=== PATIENT | male | born 1955 | race Caucasian/White ===

== ENCOUNTER → 2016-10-26 | Outpatient (CLI) | payer OTHER | LOC: FIMAGING 13:52 | PROVIDERS: ATTEND Family Medicine | DX: Z03.89 Encounter for observation for other suspected diseases and conditions ruled out (principal) ==

== ENCOUNTER → 2017-12-03 | Outpatient (CLI) | payer OTHER | LOC: FIMAGING 14:38 | PROVIDERS: ATTEND Physician Assistant | DX: M25.60 Stiffness of unspecified joint, not elsewhere classified (principal); M51.36 Other intervertebral disc degeneration, lumbar region ==

== ENCOUNTER → 2018-06-25 | Outpatient (CLI) | payer OTHER | LOC: FIMAGING 11:33 | PROVIDERS: ATTEND Neurological Surgery | DX: M54.16 Radiculopathy, lumbar region (principal); M48.062 Spinal stenosis, lumbar region with neurogenic claudication ==

== ENCOUNTER 2018-07-16 08:24 | Inpatient (IN) | payer OTHER ==
--- NOTE | 2018-07-16 06:43 | PDHPUP ---
History & Physical Update H&P update statement: This history and physical update is based on an assessment of the patient which was completed after admission or registration (within 24 hours), but prior to the surgery/procedure. H&P update: H&P reviewed & patient examined, no change in patient's condition since H&P completed
[~2018-07-16 08:24] MED LIST: oxyCODONE IR 5 MG TAB PO PRN
[2018-07-16] MEDS ORDERED: BUPIVACAINE/EPI 0.25% 30 ML SDV ONE (08:39)
[2018-07-16] MEDS ORDERED: THROMBIN (BOVINE) 5,000 UNIT VIAL TP ONE (08:39)
[2018-07-16] MEDS ORDERED: CHLORHEXIDINE GLUC HIBICLENS 118 ML BTL TP ONE (08:39)
[2018-07-16] MEDS ORDERED: BACITRACIN 50,000 UNITS/10 ML SYR IRR ONE ×2 (08:40→13:52)
[2018-07-16] MEDS ORDERED: ACETAMINOPHEN 500 MG TAB PO ONE (10:20)
[2018-07-16] MEDS ORDERED: ceFAZolin 2 GM/DEXTROSE 100 ML IV ONE (10:20)
[2018-07-16] MEDS ORDERED: GABAPENTIN 300 MG CAP PO ONE (10:20)
[2018-07-16] MEDS ORDERED: LR 1,000 ML IV ONE (10:21)
[2018-07-16] MEDS ORDERED: BACITRACIN OINTMENT 1 PACKET TP ONE (10:54)
--- NOTE | 2018-07-16 11:00 | PDANEPAE ---
ANE Past Medical History - Cardiovascular History Hx Hypertension: No Hx Arrhythmias: No Hx Chest Pain: No Hx Coronary Artery / Peripheral Vascular Disease: No Hx CHF / Valvular Disease: No Hx Palpitations: No Cardiovascular History Comment: DYSLIPIDEMIA - Pulmonary History Hx COPD: No Hx Asthma/Reactive Airway Disease: No Hx Recent Upper Respiratory Infection: No Hx Oxygen in Use at Home: No Hx Sleep Apnea: No Sleep Apnea Screening Result - Last Documented: Positive - Neurologic History Hx Cerebrovascular Accident: No Hx Seizures: No Hx Dementia: No - Endocrine History Hx Diabetes: No - Renal History Hx Renal Disorders: No - Liver History Hx Hepatic Disorders: No - Neurological & Psychiatric Hx Hx Neurological and Psychiatric Disorders: No - Cancer History Hx Cancer: Yes Cancer History Comment: SQUAMOUS CELL - Congenital Disorder History Hx Congenital Disorders: No - GI History Hx Gastrointestinal Disorders: No - Other Health History Other Health History: NEG - Chronic Pain History Chronic Pain: Yes (L LEG & L LOWER BACK) - Surgical History Prior Surgeries: LAMINOTOMY LUMBAR. KIDNEY STONE ANE Review of Systems Review of Systems: - Exercise capacity METS (RN): 4 METS ANE Patient History - Allergies Allergies/Adverse Reactions: azithromycin Allergy (Verified 07/10/18 08:58) Swelling/neck,face,throat - Home Medications Home Medications: Gabapentin [Neurontin 300 MG (*)] 900 mg PO BID 07/10/18 [Last Taken Unknown] Simvastatin [Zocor] 10 mg PO HS 07/10/18 [Last Taken Unknown] morphINE SR [Ms Contin/Oramorph 15 mg (*)] 15 mg PO TID 07/10/18 [Last Taken Unknown] oxyCODONE IR [Oxycodone Ir (*)] 5 mg PO BID PRN 07/10/18 [Last Taken Unknown] - Smoking Hx Smoking Status: Former smoker - Family Anes Hx Family Hx Anesthesia Complications: NEG ANE Labs/Vital Signs - Vital Signs Height: 185.42 cm Weight: 102.058 kg ANE Physical Exam - Airway Mallampati Score: Class 1 - ASA Status ASA Status: II ANE Anesthesia Plan Anesthesia Plan: general endotracheal anesthesia
[2018-07-16] MEDS ORDERED: MAGNESIUM HYDROXIDE 30 ML UDCUP PO PRN (11:04)
[2018-07-16] MEDS ORDERED: HYDROCODONE/APAP 5/325 TAB PO PRN (11:04)
[2018-07-16] MEDS ORDERED: ONDANSETRON 4 MG/2 ML VIAL IVP PRN ×2 (11:04→15:45)
[2018-07-16] MEDS ORDERED: ONDANSETRON DISINTEGRATING 4 MG TAB PO PRN (11:04)
[2018-07-16] MEDS ORDERED: HYDROmorphONE/DILAUDID 6 MG/30 ML PCA IV PRN (11:04)
[2018-07-16] MEDS ORDERED: diphenhydrAMINE 25 MG CAP PO PRN (11:04)
[2018-07-16] MEDS ORDERED: NALOXONE HCL 0.4 MG/ML INJ IVP PRN ×2 (11:04→15:45)
[2018-07-16] MEDS ORDERED: HYDROmorphONE/DILAUDID 1 MG/ML INJ IVP PRN (11:04)
[2018-07-16] MEDS ORDERED: LACTULOSE 20 GM/30 ML UDCUP PO PRN (11:04)
[2018-07-16] MEDS ORDERED: BISACODYL 10 MG SUPP PR PRN (11:04)
[2018-07-16] MEDS ORDERED: NS 1,000 ML IV SCH (11:15)
[2018-07-16] MEDS ORDERED: MIDAZOLAM 2 MG/2 ML VIAL ONE (11:24)
[2018-07-16] MEDS ORDERED: fentaNYL 100 MCG/2 ML INJ ONE ×3 (11:24→16:59)
[2018-07-16] MEDS ORDERED: PROPOFOL 200 MG/20 ML VIAL ONE (11:25)
[2018-07-16] MEDS ORDERED: PROPOFOL/EMULSION 500 MG/50 ML BOTTLE IV ONE ×2 (11:28→13:11)
[2018-07-16] MEDS ORDERED: ROCURONIUM 50 MG/5 ML VIAL ONE (11:54)
[2018-07-16] MEDS ORDERED: ONDANSETRON 4 MG/2 ML VIAL ONE (11:54)
[2018-07-16] MEDS ORDERED: METOCLOPRAMIDE 10 MG/2 ML VIAL ONE (11:54)
--- NOTE | 2018-07-16 11:59 | PDMN ---
Medical Necessity Medical necessity: Pt meets inpt criteria per MD order and [facility] S-820, Lumbar Fusion, IP only list. 62 y/o admitted for L4/5 and L5/S1 TLIF surg and post- op care.
--- NOTE | 2018-07-16 15:41 | POSTOPPROG ---
Post Op Note Date of Operation: 07/16/18 Surgeon: Sai Gore Exerciser Horse: RUTH Dyer Anesthesiologist: MD Lisa Anesthesia: GET(General Endotracheal), Local (Specify) Pre-op Diagnosis: Lumbar stenosis L4/5 and L5/S1 Post-op Diagnosis: Lumbar stenosis L4/5 and L5/S1 Indication: LLE pain, LBP Procedure: TLIF L4/5 and L5/S1 Findings: see Op report Inf/Abcess present in the surg proc area at time of surgery?: No Depth: Deep Incisional (Fascial) EBL: 100-500 Total fluids administered: see anesthesia record Complications: none Drains: Andrew Ogden
[2018-07-16] MEDS ORDERED: DEXAMETHASONE 4 MG/ML VIAL IVP PRN (15:45)
[2018-07-16] MEDS ORDERED: LR 500 ML IV PRN (15:45)
[2018-07-16] MEDS ORDERED: PHENYLEPHRINE HCL 100 MCG/ML SYR IVP PRN (15:45)
--- NOTE | 2018-07-16 15:46 | POSTANESTH ---
Post Anesthetic Evaluation Cardiovascular Status: Normal, Stable Respiratory Status: Normal, Stable Level of Consciousness/Mental Status: Can Participate in Eval Pain Control: Adequate, Prn Tx Ordered Nausea/Vomiting Control: Adequate, Prn Tx Ordered Complications Possibly Related to Anesthesia: None Noted
--- NOTE | 2018-07-16 15:49 | SOAPPROG ---
SOAP Progress Note Assessment/Plan: Post Op Visit: S: Awake and alert, NAD. Pt with expected lower back pain O: AFVSS/PERRLA/EOMI no droop CN 2-12 grossly intact +lt touch 5/5 BUE/BLE = CDI HILARY in place A/P: 62 yo male that is s/p TLIF L4/5 and L5/S1 -orders in place -call with any questions or concerns -pt seen by Dr Gore as well -xrays pending in am -PT/OT -brace when out of bed Objective: Vital Signs Temp Pulse Resp BP Pulse Ox 37 C 57 L 16 131/70 H 96 07/16/18 10:21 07/16/18 10:21 07/16/18 10:21 07/16/18 10:21 07/16/18 10:21 ICD10 Worksheet Patient Problems: Problems Problem Status Onset Arthrodesis status Acute Lumbar radicular pain Acute Lumbar stenosis Acute - ICD10 Problem Qualifiers (1) Lumbar stenosis (2) Lumbar radicular pain (3) Arthrodesis status
[2018-07-16] MEDS ORDERED: HYDROmorphONE/DILAUDID 2 MG/ML INJ ONE (16:18)
[2018-07-16] MEDS: fentaNYL 100 MCG/2 ML INJ IVP PRN ×3 (16:20→17:02)
[2018-07-16] MEDS: HYDROmorphONE/DILAUDID 2 MG/ML INJ IVP PRN ×4 (16:22→17:02)
[2018-07-16] MEDS: morphINE SR 15 MG TAB PO SCH ×3 (16:23→22:29)
[2018-07-16] MEDS ORDERED: oxyCODONE IR 5 MG TAB ONE (16:58)
[2018-07-16] MEDS: oxyCODONE IR 5 MG TAB PO PRN ×2 (16:59→20:26)
[2018-07-16] MEDS: ACETAMINOPHEN 500 MG TAB PO SCH ×2 (17:52→22:29)
[2018-07-16] MEDS: GABAPENTIN 300 MG CAP PO SCH ×2 (17:53→20:16)
[2018-07-16] MEDS: ceFAZolin 2 GM/DEXTROSE 100 ML IV SCH (20:15)
[2018-07-16] MEDS: FAMOTIDINE 20 MG TAB PO SCH (20:15)
[2018-07-16] MEDS: SENNOSIDES/DOCUSATE SODIUM TAB PO SCH (20:15)
[2018-07-16] MEDS: PRAVASTATIN SODIUM 20 MG TAB PO SCH (20:16)
[2018-07-17] MEDS: ceFAZolin 2 GM/DEXTROSE 100 ML IV SCH (05:20)
[2018-07-17] MEDS: ACETAMINOPHEN 500 MG TAB PO SCH ×3 (05:20→22:00)
[2018-07-17 05:21] LABS: PLATELET COUNT 190 10^3/uL (150-400)
--- NOTE | 2018-07-17 06:20 | GOP ---
DATE OF OPERATION: 07/16/2018 SURGEON: Whit Gore MD NEUROSURGEON: Whit Gore MD. BACK SEAM STITCHER: Marquis Dyer PA-C. PREOPERATIVE DIAGNOSIS: Left lumbosacral radiculopathy; prior lumbar laminectomy, L4-5; lumbar facet arthropathy, L4-5; severe foraminal stenosis, L4-5; moderate foraminal stenosis, L5-S1; failed back syndrome. POSTOPERATIVE DIAGNOSIS: Left lumbosacral radiculopathy; prior lumbar laminectomy, L4-5; lumbar face t arthropathy, L4-5; severe foraminal stenosis, L4-5; moderate foraminal stenosis, L5-S1; failed back syndrome. PROCEDURE PERFORMED: Posterolateral and intervertebral arthrodesis, L4-5, L5-S1, with left hemilamin ectomy, L4-5, L5-S1, and complete facetectomy and foraminal decompressions at L4-5, L5-S1 (38708, 226 34); posterior segmental instrumentation, L4-5, L5-S1 (53352); placement of biomechanical interverteb ral device, L4-5, L5-S1 (01223 x2); spinal stereotaxy; microscope; same incision bone graft harvest. FINDINGS: Consistent with diagnoses. SPECIMENS: None. ESTIMATED BLOOD LOSS: 250 cc. INDICATIONS: The patient is a middle-aged gentleman who underwent an L4-5 laminectomy for neurogenic claudication and had some relief of symptoms, particularly in the right leg, but developed relentles s left lower extremity pain that mimicked both L5 and S1 type pattern of pain. His initial followup M RI demonstrated the development of a large synovial cyst centrally, encompassing the spinal canal at the L4-5 level, and he underwent attempted aspiration of this fluid. He did not have a spinal fluid l eak, and really none of this fluid was aspiratable. We managed this medically, but he continued to omalley ve relentless symptoms radiating down the left leg into the bottom of the left foot, but there were a lso other symptoms that mimicked L5, and they did not improve with time. We got a delayed study, an M RI of the lumbar spine, several months later, and it showed resolution of the significant synovial fl uid at the L4-5 level, but he had developed interval significant bilateral facet arthropathy at that level with incompetent facets and even a mild at L4-5. He also had compression of the exi ting nerve roots both on the left at L4-5 as well as possibly some transient residual left lateral re cess stenosis at L4-5, but he also had compression of the exiting L5 root at the L5-S1 level and the neural foramen and possibly some left lateral recess stenosis at L5-S1. In addition to these challeng es, he also had axial low back pain, and because of the foraminal disease, the fact that he had had a failed laminectomy, the fact that he had axial low back pain and incompetent facets at the L4-5 levsmita l I suggested 2-level fusion. The risk of continued symptoms, adjacent segment disease, nerve injury , spinal fluid leak were discussed. 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 He knew there was risk of contin ued symptoms and additional future spine surgery, and he did want to proceed with the planned procedu re. He knew there was risk of screw and hardware complications including malfunction and malposition, and he wanted to proceed. DESCRIPTION OF PROCEDURE: The patient was taken to the operating room, placed in a supine position. General anesthesia was begun. He was flipped prone onto the Andrew table. Care was taken to pad all points of contact. His back was sterilely prepped and draped in the usual fashion. A localizing x-ray was taken. His prior incision was marked. Using the prior incision, I extended it rostrally and infe riorly. The total length of our incision was about 8 cm. The exposure was very deep. We dissected thr ough the tissues of the back with Bovie cautery. We performed a subperiosteal dissection down the inf erior lamina of L3. The lamina of L4, L5, and S1 were exposed. There were large cysts coming out of t he L4-5 facet joints on each side. There were sesamoid bones floating on the left side of the facet j oint at L4-5, and there was a huge fluid cavity contiguous with the right L4-5 facet joint. We shot l ocalizing x-rays and then denuded the spine at L4-5, 5-1 of the facet joints themselves. We attached the uTaP reference frame and using frameless Stealth stereotaxy, we placed pedicle screws bilatera lly at L4, L5, and S1. We performed an O-arm spin. All the screws were in excellent position. All the screws stimulated excellent level. We took rods, put them down over the screws, and gently distracte d between L4-5, 5-1. We shot x-rays confirming alignment of the spine. We were happy with the degree of lordosis that we had achieved. A self-retaining retractor was placed. We removed all the soft tiss ue of the bone at L4-5, 5-1, and then harvested the L5 spinous process for autologous grafting purpos es. We then performed under the microscope a left hemilaminectomy of L5 and then worked our way up to the prior surgical level at L4-5, where we drilled away the left L4-5 facet joint complex and lifted the inferior articulating process of L4 out of the superior articular process of L5. We removed the inferior articular process of L5 and lifted off the superior articular process of the sacrum. We harv ested all this bone for autologous grafting purposes. Then under the microscope, we performed a left lateral recess decompression at the L5-S1 level, decompressing the left S1 root and the lateral reces s, and indeed there was stenosis there, and we also removed much of the SAP and the rostral SAP, the sacrum, and this too was compressing the L5 nerve root in the neural foramen at L5-S1, consistent wit h our diagnosis. We then followed the L5 nerve root up adjacent to its pedicle into the prior operati ng site, working out way along the pedicle and then along the medial aspect of the SAP of L5. We viri shagufta at SAP of L5 and decompressed the exiting L4 nerve root in the neural foramen as well. We had now decompressed the L4, L5, and S1 nerve roots completely. There was significant foraminal stenosis at each level. In addition, we then swept the nerve roots medially and looked underneath the nerves. The re was no free fragment disk herniation. We then swept the S1 nerve root medially and under the micro scope removed the L5-S1 disk and the cartilaginous endplates completely. We roughened the subchondral bone to create arthrodesis at that level. I then went to the L4-5 level where I swept the L5 nerve r oot medially and from a left-sided approach, removed the disk and the cartilaginous endplates there. I roughened the subchondral bone to create arthrodesis at the 4-5 level as well. We then placed bone autograft and BMP into the disk space and sized each of the spaces and chose an 8 x 28 mm expandable device that was inserted under fluoroscopic guidance. We put 1 mg of BMP in each disk space, expanded the devices under fluoroscopic guidance, and x-rays looked great. We then decorticated all the remai nicho posterolateral bone bilaterally at L4-5, 5-1 to create arthrodesis and then placed bone autograf t and BMP posterolaterally bilaterally at L4-5, 5-1, and placed a subfascial drain. We then closed th e incision in multiple layers using Vicryl sutures. Running PDS was placed in the skin itself. The pa tient was reversed from anesthesia, extubated, and transferred to recovery room in stable condition. There were no complications. COMPLICATIONS: None. INSTRUMENTATION USED: Sencha 5.5 mm Solara system with an 8 x 28 mm Elevate cage at each level. /[id number]/MODL
--- NOTE | 2018-07-17 07:42 | NEUSURGPN ---
Date of Surgery: 07/16/18 Post Op Day: 1 Assessment/Plan: 62 yo male s/p TLIF at L4/5 and L5/S1 - neuro: Having left anterior thigh numbness, likely from positioning. Will improve with time - pain control - HILARY drain to be removed this afternoon - brace on when out of bed - PT/OT - postop L-spine x-rays pending - SCDs/TEDs, Lovenox to start on 07/[address] Gore Subjective: Having left anterior thigh numbness. No other LE symptoms. Localized back pain. Objective: Awake. Alert. PERRL. EOMI Facial expression symmetrical Muscle strength full at 5/5 Sensation intact Catheter Insertion Date: 07/16/18 - Physician Discussed Patient with : [facility] Physical Exam - Vitals, I&O, Labs I and O 07/16/18 07/17/18 07/18/18 05:59 05:59 05:59 Intake Total 120 Output Total 2480 Balance -2360 Weight 102.058 kg Intake: Oral (ml) 120 Output: Urine (ml) 1950 Catheter 1950 Estimated Blood Loss (ml) 200 HILARY Drain Output (ml) 330 Back Andrew Ogden 330 Other: Intake Quantity Yes Sufficient Vital Signs Temp Pulse Resp BP Pulse Ox 36.9 C 57 L 16 119/55 L 90 L 07/17/18 04:20 07/17/18 04:20 07/17/18 04:20 07/17/18 04:20 07/17/18 04:20 Laboratory Results 07/17/18 04:50 07/17/18 04:50 ICD10 Worksheet Patient Problems: Problems Problem Status Onset Arthrodesis status Acute Lumbar radicular pain Acute Lumbar stenosis Acute
[2018-07-17] MEDS: morphINE SR 15 MG TAB PO SCH ×3 (08:00→22:01)
[2018-07-17] MEDS: SENNOSIDES/DOCUSATE SODIUM TAB PO SCH ×2 (08:01→22:01)
[2018-07-17] MEDS: GABAPENTIN 300 MG CAP PO SCH ×2 (08:01→22:00)
[2018-07-17] MEDS: METHOCARBAMOL 750 MG TAB PO PRN ×2 (08:01→15:14)
[2018-07-17] MEDS: oxyCODONE IR 5 MG TAB PO PRN ×5 (08:01→22:01)
[2018-07-17] MEDS: FAMOTIDINE 20 MG TAB PO SCH ×2 (08:02→22:00)
--- NOTE | 2018-07-17 10:35 | ASMTCMCOM ---
CM Note CM Note Notes: Pt's charged reviewed for d/c planning. Pt is a 62y/o male with a diagnosis of failed back syndrome. He underwent surgery having an L4/5, L5/S1, TLIF Lum Lum fusion with stealth. Pt is ; he is retired. PT/OT have been ordered. CM will follow. D/C Plan: TBD Date Signed: 07/17/2018 10:35 AM Electronically Signed By:Barb Babb
[2018-07-17] MEDS: POLYETHYLENE GLYCOL 3350 17 GM PKT PO PRN (11:19)
[2018-07-17] MEDS: PRAVASTATIN SODIUM 20 MG TAB PO SCH (22:01)
[2018-07-18] MEDS: oxyCODONE IR 5 MG TAB PO PRN ×6 (03:48→23:27)
[2018-07-18] MEDS: ACETAMINOPHEN 500 MG TAB PO SCH ×3 (06:37→22:02)
[2018-07-18] MEDS: GABAPENTIN 300 MG CAP PO SCH ×2 (09:31→20:04)
[2018-07-18] MEDS: morphINE SR 15 MG TAB PO SCH ×3 (09:31→22:00)
[2018-07-18] MEDS: FAMOTIDINE 20 MG TAB PO SCH ×2 (09:31→20:03)
[2018-07-18] MEDS: SENNOSIDES/DOCUSATE SODIUM TAB PO SCH ×2 (09:32→20:03)
[2018-07-18] MEDS: METHOCARBAMOL 750 MG TAB PO PRN ×3 (09:39→20:03)
--- NOTE | 2018-07-18 10:05 | SOAPPROG ---
SOAP Progress Note Assessment/Plan: Assessment: 62 yo male POD 2 sp L4-S1 TLIF doing well with some ongoing incisional pain. Preop right leg pain improved Plan: CPM with PT/OT Keep one more day for pain control and more mobility with PT/OT 07/18/18 10:03 Subjective: lying in bed, comfortable. Right leg pain improved, still with paresthesias in thigh. No new issues. Objective: Vital Signs Temp Pulse Resp BP Pulse Ox 36.6 C 72 14 97/61 L 92 07/18/18 07:40 07/18/18 07:40 07/18/18 07:40 07/18/18 07:40 07/18/18 07:40 Laboratory Results 07/17/18 04:50 07/17/18 04:50 07/17/18 07/18/18 07/19/18 05:59 05:59 05:59 Intake Total 120 1400 Output Total 2480 2820 Balance -4660 -1420 Dressing : CDI Neuro SHAVER, sens +LT ICD10 Worksheet Patient Problems: Problems Problem Status Onset Arthrodesis status Acute Lumbar radicular pain Acute Lumbar stenosis Acute
--- NOTE | 2018-07-18 10:54 | ASMTCMCOM ---
CM Note CM Note Notes: PT has recommended SNF and OT has recommended home care. Pt has requested home care; his is supportive of that decision. [facility] was sent a text through [facility], awaiting reply. Date Signed: 07/18/2018 10:54 AM Electronically Signed By:Barb Babb
--- NOTE | 2018-07-18 12:15 | ASMTCMCOM ---
CM Note CM Note Notes: [facility] confirmed that they can accept pt for PT/OT. D/C Plan: Home with [facility] PT/OT. Date Signed: 07/18/2018 12:14 PM Electronically Signed By:Barb Babb
[2018-07-18] MEDS: PRAVASTATIN SODIUM 20 MG TAB PO SCH (20:05)
[2018-07-19] MEDS: oxyCODONE IR 5 MG TAB PO PRN ×3 (02:32→10:09)
[2018-07-19] MEDS: ACETAMINOPHEN 500 MG TAB PO SCH (05:27)
[2018-07-19 07:30] VITALS: BP 99/50
[2018-07-19] MEDS: POLYETHYLENE GLYCOL 3350 17 GM PKT PO PRN (08:02)
[2018-07-19] MEDS: GABAPENTIN 300 MG CAP PO SCH (08:04)
[2018-07-19] MEDS: SENNOSIDES/DOCUSATE SODIUM TAB PO SCH (08:04)
[2018-07-19] MEDS: morphINE SR 15 MG TAB PO SCH (08:04)
[2018-07-19] MEDS: FAMOTIDINE 20 MG TAB PO SCH (08:04)
[2018-07-19] MEDS ORDERED: ENOXAPARIN 40 MG/0.4 ML SYR SC SCH (09:00)
[2018-07-19] MEDS: METHOCARBAMOL 750 MG TAB PO PRN (10:09)
--- NOTE | 2018-07-19 10:29 | SOAPPROG ---
SOAP Progress Note Assessment/Plan: Assessment: 62 yo male POD 3 sp L4-S1 TLIF doing well with some ongoing incisional pain with transitions Preop right leg pain improved Plan: DC home with LSO when OOB walker Subjective: sitting in bedside chair. No new issues. Eager to go home today Objective: Vital Signs Temp Pulse Resp BP Pulse Ox 36.8 C 59 L 16 99/50 L 93 07/19/18 07:29 07/19/18 07:29 07/19/18 07:29 07/19/18 07:29 07/19/18 07:29 Laboratory Results 07/17/18 04:50 07/17/18 04:50 07/18/18 07/19/18 07/20/18 05:59 05:59 05:59 Intake Total 1400 500 Output Total 2820 Balance -1420 500 Incision CDI Neuro: SHAVER, sens +LT mobilizes easily w walker ICD10 Worksheet Patient Problems: Problems Problem Status Onset Arthrodesis status Acute Lumbar radicular pain Acute Lumbar stenosis Acute
--- NOTE | 2018-07-19 11:44 | ASMTLACE ---
LACE Length of stay for Answers: 3 days current admission Acuity / Level of Answers: Yes Care: Did the patient have an inpatient admission? Comorbidities - select Answers: Opioid dependence all that apply / Chronic pain # of Emergency department Answers: 0 visits in the last 6 months Score: 10 Date Signed: 07/19/2018 11:44 AM Electronically Signed By:Pilar Funes LCSW
--- NOTE | 2018-07-19 11:50 | ASDISCHSUM ---
Discharge Information Plan Status:Home with No Needs Medically Cleared to Leave:07/18/2018 Discharge Date:07/18/2018 CM D/C Disposition:Home, Routine, Self-Care ADT D/C Disposition:Home, Routine, Self-Care Projected Discharge Date:07/19/2018 01:00 PM Transportation at D/C:Family Discharge Delay Reason: Follow-Up Date:07/19/2018 01:00 PM Discharge Slot:2 - 12:01 pm - 18:00 pm Final Diagnosis:L4-S1 TLIF Placement Information Patient Contact Information Contact Name:WILLIAM Relationship: Address:[address] City:[place] Alternate Phone: [facility]/Zip Code:[place] [address] Email: Financial Information Financial Class:BC Primary Plan Desc:[facility] Primary Plan Number:[id number] Secondary Plan Desc: Secondary Plan Number: Assessment Information LACE LACE Length of stay for Answers: 3 days current admission Acuity / Level of Answers: Yes Care: Did the patient have an inpatient admission? Comorbidities - select Answers: Opioid dependence all that apply / Chronic pain # of Emergency department Answers: 0 visits in the last 6 months Score: 10 Date Signed: 07/19/2018 11:44 AM Electronically Signed By:Pilar Funes LCSW [facility] CM Progress Note CM Note CM Note Notes: Pt's charged reviewed for d/c planning. Pt is a 62y/o male with a diagnosis of failed back syndrome. He underwent surgery having an L4/5, L5/S1, TLIF Lum Lum fusion with stealth. Pt is ; he is retired. PT/OT have been ordered. CM will follow. D/C Plan: TBD Date Signed: 07/17/2018 10:35 AM Electronically Signed By:Barb Babb [facility] CM Progress Note CM Note CM Note Notes: PT has recommended SNF and OT has recommended home care. Pt has requested home care; his is supportive of that decision. [facility] was sent a text through [employer], awaiting reply. Date Signed: 07/18/2018 10:54 AM Electronically Signed By:Barb Babb [facility] CM Progress Note CM Note CM Note Notes: [facility] confirmed that they can accept pt for PT/OT. D/C Plan: Home with [facility] PT/OT. Date Signed: 07/18/2018 12:14 PM Electronically Signed By:Barb Babb Case Management Discharge Plan Note Case Management Discharge Discharge Order Complete? Answers: Yes Patient to Obtain Answers: via Family Medications Transportation Arranged Answers: Family/Friends Transport will Pick (Date 07/19/2018 01:00 PM & Time) Family Notified Answers: Yes Notes: Family to transport Discharge Comments Notes: Patient has been discharged home with family. Therapy reports that he is up and walking and up and down stairs independently. ]Patient reports that he dose not need HC. Left message for [facility] to cancel services. Date Signed: 07/19/2018 11:48 AM Electronically Signed By:Pilar Funes LCSW Intervention Information
== END 2018-07-19 11:59 | disposition home or self-care (01) | DRG 455 ==
LOC: F3N 09:51
PROVIDERS: ADMIT Neurological Surgery; ATTEND Neurological Surgery
PROC: 01NR0ZZ Release Sacral Nerve, Open Approach (ICD-10-PCS; principal; 2018-07-16 12:15)
PROC: 0ST40ZZ Resection of Lumbosacral Disc, Open Approach (ICD-10-PCS; principal; 2018-07-16 12:15)
PROC: 01NB0ZZ Release Lumbar Nerve, Open Approach (ICD-10-PCS; principal; 2018-07-16 12:15)
PROC: 4A1004G Monitoring of Central Nervous Electrical Activity, Intraoperative, Open Approach (ICD-10-PCS; principal; 2018-07-16 12:15)
PROC: 0SG1071 Fusion of 2 or more Lumbar Vertebral Joints with Autologous Tissue Substitute, Posterior Approach, Posterior Column, Open Approach (ICD-10-PCS; principal; 2018-07-16 12:15)
PROC: 8E0WXBZ Computer Assisted Procedure of Trunk Region (ICD-10-PCS; principal; 2018-07-16 12:15)
PROC: 0SG00AJ Fusion of Lumbar Vertebral Joint with Interbody Fusion Device, Posterior Approach, Anterior Column, Open Approach (ICD-10-PCS; principal; 2018-07-16 12:15)
PROC: 0SG0071 Fusion of Lumbar Vertebral Joint with Autologous Tissue Substitute, Posterior Approach, Posterior Column, Open Approach (ICD-10-PCS; principal; 2018-07-16 12:15)
PROC: 0SG30AJ Fusion of Lumbosacral Joint with Interbody Fusion Device, Posterior Approach, Anterior Column, Open Approach (ICD-10-PCS; principal; 2018-07-16 12:15)
DX: M54.17 Radiculopathy, lumbosacral region (principal); M48.062 Spinal stenosis, lumbar region with neurogenic claudication; E78.5 Hyperlipidemia, unspecified; G89.4 Chronic pain syndrome
CPT/HCPCS: 97116-GP; 97161-GP; 97166-GO; 97530-GO; 97530-GP; 97535-GO; C1713; J0690; J1170; J1650; J2250; J2405; J2704; J2765; J3010

== ENCOUNTER → 2018-09-15 | Outpatient (CLI) | payer OTHER | LOC: FIMAGING 07:04 | PROVIDERS: ATTEND Physician Assistant | DX: Z09 Encounter for follow-up examination after completed treatment for conditions other than malignant neoplasm (principal); Z98.1 Arthrodesis status; M48.062 Spinal stenosis, lumbar region with neurogenic claudication ==

== ENCOUNTER → 2019-01-12 | Outpatient (CLI) | payer OTHER | LOC: FLAB 12:25 → FIMAGING 12:25 ==